=== PATIENT | female | born 2000 | race African-American/Black ===

== ENCOUNTER 2023-06-28 10:02 | Emergency (ER) | payer OTHER ==
[~2023-06-28] VITALS: Ht 152.4 cm; Wt 70.0 kg
[2023-06-28 10:15] VITALS: O2SAT 99
[2023-06-28 11:00] LABS: CLARITY URINE CLOUDY (CLEAR); COLOR URINE DARK YELLOW (YELLOW); GLUCOSE URINE NEGATIVE (NEGATIVE); KETONES URINE TRACE (NEGATIVE); LEUKOCYTE ESTERASE URINE 1+ (NEGATIVE); NITRITE URINE NEGATIVE (NEGATIVE); OCCULT BLOOD URINE NEGATIVE (NEGATIVE); PROTEIN URINE 1+ (NEGATIVE); SPECIFIC GRAVITY URINE 1.032 (1.005-1.030)
[2023-06-28 11:26] LABS: MUCUS URINE 3+ /lpf (< = 2+); SQUAMOUS EPITHELIAL CELL URINE 3+ /lpf (RARE/1+)
[2023-06-28 11:28] LABS: BACTERIA URINE 3+
[2023-06-28] MEDS: KETOROLAC 15MG/ML VIAL IM ONE (12:23)
[2023-06-28 12:35] VITALS: BP 122/78; PULSE 88; RESP 18; TEMP 98.7
== END 2023-06-28 12:37 | disposition home or self-care (01) ==
LOC: ER 10:02
DX: J06.9 Acute upper respiratory infection, unspecified (principal); Z20.822 Contact with and (suspected) exposure to COVID-19; Z98.890 Other specified postprocedural states; Z88.9 Allergy status to unspecified drugs, medicaments and biological substances
CPT/HCPCS: 99283; 87426; 81003; 81025; 87804 ×2; 96372; J1885

== ENCOUNTER 2025-01-17 18:13 | Emergency (ER) | payer OTHER ==
[~2025-01-17] VITALS: Ht 147.3 cm; Wt 82.0 kg
[2025-01-17 18:28] VITALS: O2SAT 100
[2025-01-17] MEDS: KETOROLAC 15MG/ML VIAL IM ONE (21:01)
[2025-01-17] MEDS ORDERED: NAPR-1176 MT (21:20)
[2025-01-17] MEDS ORDERED: LIDO-53 TP (21:20)
[2025-01-17 21:58] VITALS: BP 113/61; PULSE 68; RESP 18; TEMP 36.9; O2SAT 100
== END 2025-01-17 21:58 | disposition home or self-care (01) ==
LOC: ER 18:13
DX: M25.572 Pain in left ankle and joints of left foot (principal)
CPT/HCPCS: 99283; 81025; 73610; J1885; A6449